=== PATIENT | female | born 1965 | race American Indian/Alaskan Native ===

== ENCOUNTER 2019-12-28 08:09 | Day surgery (SDC) | payer OTHER ==
[~2019-12-28] VITALS: Ht 157.5 cm; Wt 97.5 kg
[~2019-12-28 08:09] MED LIST: BACTRIM DS TAB1 EACH PO; OXYCODON-ACETA1 EAC2 PO; PLAQUENIL200 MG PO; PREDNISONE10 MG PO; VITAMIN B122500 MCG PO; VITAMIN D5000 UNIT PO; ZOFRAN ODT4 MG SL
--- NOTE | 2019-12-28 09:55 | NUR ---
12/28/19 0955 Carmel Whitehead 9658-PATIENT ARRIVED TO PACU ON RA RR EVEN LAYING LEFT LATERAL ABDOMEN SOFT. PATIENT REACTIVE TO VERBAL STIMULI SHAKES HEAD NO TO PAIN OR NAUSEA. DROWSY EYES CLOSED.
--- NOTE | 2019-12-30 14:01 | OR ---
[facility] [address], [place] [address] Signed DATE OF OPERATION: 12/28/2019 SURGEON: Maggie Aguilar MD PREOPERATIVE DIAGNOSIS: History of hyperplastic polyps four years ago. POSTOPERATIVE DIAGNOSIS: Normal colon to cecum. PROCEDURE: Total colonoscopy to cecum. ANESTHESIA: Intravenous sedation, fentanyl 100 mcg and Versed 5 mg. INDICATION: This 54-year-old [place] woman is a patient of Dr. Kaur of [facility]. She is here for surveillance colonoscopy. She does have underlying systemic lupus. She underwent colonoscopy four years ago where she was found to have hyperplastic polyps. She is symptom free regards rectal bleeding, diarrhea or constipation. She has had pelvic pain of uncertain etiology. A CT scan of the abdomen and pelvis is considered if she has no findings on colonoscopy to account for her symptoms of pain. The risks of colonoscopy including, but not limited to bleeding, infection, and perforation have been reviewed. She understands and wished to proceed. FINDINGS: The prep was excellent. Complete colonoscopy was undertaken to the cecum without question. She had no evidence of polyps, diverticular formation, colitis, or cancer. DESCRIPTION OF PROCEDURE: The patient was brought to the endoscopy suite and placed in lateral decubitus position given intravenous sedation to the point of slurred speech and nystagmus. Digital rectal examination was normal. An Olympus video colonoscope was passed in the rectum and manipulated throughout the colon. I did not see diverticular changes of the sigmoid. The scope was advanced ultimately to the cecum. The ileocecal valve and appendiceal orifice were normal. The scope was withdrawn from that point. Examination throughout showed no sign of abnormality and certainly no abnormality in the rectosigmoid or pelvic area. The scope was removed. The patient was taken to recovery room in good condition. Electronically Signed By: MAGGIE AGUILAR MD 12/30/19 1401 PATIENT NAME: KELLI JOSEPH OPERATIVE REPORT DATE OF : 65 REPORT #: [id number] PHYSICIAN: MAGGIE AGUILAR MD PCP: SWETHA KAUR MD REPORT IS CONFIDENTIAL AND NOT TO BE RELEASED WITHOUT AUTHORIZATION [facility] [address] [place] [id number] Signed CONCLUSION DIAGNOSIS: Normal colon. PLAN: Recommend repeat colonoscopy in 5 years. Consideration will be made for CT scan to assess for occult cause of pelvic pain. Maggie Aguilar MD JM/MODL /[id number] cc: Swetha Kaur MD Copies: SWETHA KAUR MD ~ Electronically Signed By: MAGGIE AGUILAR MD 12/30/19 1401 PATIENT NAME: KELLI JOSEPH OPERATIVE REPORT DATE OF : 65 REPORT #: [id number] PHYSICIAN: MAGGIE AGUILAR MD PCP: SWETHA KAUR MD REPORT IS CONFIDENTIAL AND NOT TO BE RELEASED WITHOUT AUTHORIZATION
== END 2019-12-28 10:30 | disposition home or self-care (01) ==
LOC: DS 08:09 → OPS 08:09 → DS 09:45 → OPS 09:45
PROVIDERS: Surgery
PROC: 0DJD8ZZ Inspection of Lower Intestinal Tract, Via Natural or Artificial Opening Endoscopic (ICD-10-PCS; principal; 2019-12-28 09:45)
DX: Z12.11 Encounter for screening for malignant neoplasm of colon (principal); K21.9 Gastro-esophageal reflux disease without esophagitis; G43.909 Migraine, unspecified, not intractable, without status migrainosus; Z86.010 Personal history of colon polyps; Z79.899 Other long term (current) drug therapy
CPT/HCPCS: 99153; G0500; J2250; J3010; J7121